=== PATIENT | female | born 1945 | race Caucasian/White ===

== ENCOUNTER 2022-07-12 08:29 | Outpatient (CLI) | payer MEDICARE, BC | END 2022-07-12 08:30 | disposition home or self-care (01) | LOC: CSHMAMMO 08:29 | PROVIDERS: ATTEND Family Medicine | DX: Z12.31 Encounter for screening mammogram for malignant neoplasm of breast (principal) | CPT/HCPCS: 77063; 77067 ==

== ENCOUNTER 2023-07-14 09:45 | Outpatient (CLI) | payer MEDICARE, BC | END 2023-07-14 09:46 | disposition home or self-care (01) | LOC: CSHMAMMO 09:45 | PROVIDERS: ATTEND Family Medicine | DX: Z12.31 Encounter for screening mammogram for malignant neoplasm of breast (principal); Z13.820 Encounter for screening for osteoporosis; M17.0 Bilateral primary osteoarthritis of knee; M25.552 Pain in left hip; M35.00 Sjogren syndrome, unspecified; M48.062 Spinal stenosis, lumbar region with neurogenic claudication; M85.851 Other specified disorders of bone density and structure, right thigh; M85.852 Other specified disorders of bone density and structure, left thigh; Z79.899 Other long term (current) drug therapy; Z91.89 Other specified personal risk factors, not elsewhere classified | CPT/HCPCS: 77063; 77067; 77080 ==

== ENCOUNTER 2025-07-28 11:47 | Outpatient (CLI) | payer MEDICARE | END 2025-07-28 11:48 | disposition home or self-care (01) | LOC: CSHMAMMO 11:47 | PROVIDERS: ATTEND Family Medicine | DX: Z12.31 Encounter for screening mammogram for malignant neoplasm of breast (principal) | CPT/HCPCS: 77063; 77067 ==